=== PATIENT | female | born 1980 | race Caucasian/White ===

== ENCOUNTER 2022-02-11 21:39 | Inpatient (IN) | payer OTHER ==
[2022-02-11 22:31] VITALS: BMI 22.8
[2022-02-11] MEDS ORDERED: cloNIDine HCL 0.1 MG TABLET PO PRN (23:00)
[2022-02-11] MEDS ORDERED: MAG HYDROX/AL HYDROX/SIMETH 30 ML UNIT-DOSE CUP PO PRN (23:00)
[2022-02-11] MEDS ORDERED: MAGNESIUM CITRATE 300 ML BOTTLE PO PRN (23:00)
[2022-02-11] MEDS ORDERED: MAGNESIUM HYDROX 2400MG/30ML ORAL SUSPENSION 30 ML CUP PO PRN (23:00)
[2022-02-11] MEDS ORDERED: ACETAMINOPHEN 325 MG TABLET (FP) PO PRN (23:00)
[2022-02-11] MEDS ORDERED: NALOXONE HCL 0.4 MG/ML VIAL IM PRN (23:00)
[2022-02-11] MEDS ORDERED: BENZOCAINE/MENTHOL (CHLORASEPTIC ) LOZENGE MM PRN (23:00)
[2022-02-11] MEDS ORDERED: IBUPROFEN 400 MG TABLET (FP) PO PRN (23:00)
[2022-02-11] MEDS ORDERED: LOPERAMIDE HCL 2 MG CAPSULE PO PRN (23:00)
[2022-02-11] MEDS ORDERED: BISMUTH SUBSALICYLATE 524 MG/30 ML PO PRN (23:00)
[2022-02-11] MEDS ORDERED: methaDONE HCL 10 MG TABLET (FOR DETOX USE ONLY) PO ONE (23:00)
[2022-02-11] MEDS ORDERED: DICYCLOMINE HCL 10 MG CAPSULE PO PRN (23:00)
[2022-02-12] MEDS ORDERED: methaDONE HCL 10 MG TABLET (FOR DETOX USE ONLY) ONE (09:01)
[2022-02-12 09:24] LABS: HEMOGLOBIN 13.1 GM/dL (10.7-15.3); MCH 27.2 pg (25.7-33.7); MCHC 33.6 g/dl (32.0-36.0); MEAN PLT VOLUME 8.8 fl (7.5-11.1); PLATELET COUNT 430 10^3/uL (134-434); RBC 4.82 M/mm3 (3.60-5.2); RDW 15.2 % (11.6-15.6); WHITE BLOOD COUNT 6.1 K/mm3 (4.0-10.0)
[2022-02-12 09:45] LABS: CALCIUM 9.1 mg/dL (8.5-10.1)
[2022-02-12 09:46] LABS: ALBUMIN 3.5 g/dl (3.4-5.0); BILIRUBIN,TOTAL 0.3 mg/dL (0.2-1); BLOOD UREA NITROGEN 12.1 mg/dL (7-18)
[2022-02-12] MEDS: ARIPiprazole 10 MG TABLET PO SCH (10:41)
[2022-02-12] MEDS: PRENATAL VITAMINS W/ FOLIC ACID TABLET (FP) PO SCH (10:41)
[2022-02-12] MEDS: NICOTINE 14 MG/24 HOURS TOPICAL PATCH TD SCH (10:41)
[2022-02-12] MEDS ORDERED: POTASSIUM CHLORIDE TABS 20 MEQ TABLET.ER (FP) PO ONE (12:16)
[2022-02-12] MEDS ORDERED: P-EPHED 60MG/TRIPROLIDI 2.5MG TABLET PO PRN (15:00)
[2022-02-12] MEDS: NICOTINE POLACRILEX 2 MG GUM BUC PRN ×2 (15:39→20:04)
[2022-02-12] MEDS: THIAMINE HCL 100 MG TABLET (FP) PO SCH (22:03)
[2022-02-12] MEDS: METHOCARBAMOL 500 MG TABLET PO PRN (22:03)
[2022-02-12] MEDS: MELATONIN 5 MG TABLETS PO SCH (22:03)
[2022-02-13] MEDS ORDERED: methaDONE HCL 10 MG TABLET (FOR DETOX USE ONLY) PO ONE (10:00)
[2022-02-13] MEDS: PRENATAL VITAMINS W/ FOLIC ACID TABLET (FP) PO SCH (10:31)
[2022-02-13] MEDS: NICOTINE 14 MG/24 HOURS TOPICAL PATCH TD SCH (10:31)
[2022-02-13] MEDS: ARIPiprazole 10 MG TABLET PO SCH (10:33)
[2022-02-13] MEDS: NICOTINE POLACRILEX 2 MG GUM BUC PRN (10:56)
[2022-02-13] MEDS: NICOTINE 10 MG CARTRIDGE (INHALER) IH PRN ×2 (12:06→21:06)
[2022-02-13] MEDS: METHOCARBAMOL 500 MG TABLET PO PRN ×2 (12:06→21:06)
[2022-02-13] MEDS: IBUPROFEN 600 MG TABLET (FP) PO PRN (17:34)
[2022-02-13] MEDS: THIAMINE HCL 100 MG TABLET (FP) PO SCH (21:06)
[2022-02-13] MEDS: MELATONIN 5 MG TABLETS PO SCH (21:06)
[2022-02-14] MEDS ORDERED: methaDONE HCL 10 MG TABLET (FOR DETOX USE ONLY) ONE (10:03)
[2022-02-14] MEDS: PRENATAL VITAMINS W/ FOLIC ACID TABLET (FP) PO SCH (10:06)
[2022-02-14] MEDS: METHOCARBAMOL 500 MG TABLET PO PRN ×2 (10:06→20:33)
[2022-02-14] MEDS: ARIPiprazole 10 MG TABLET PO SCH (10:07)
[2022-02-14] MEDS: ACETAMINOPHEN 325 MG TABLET (FP) PO PRN (17:10)
[2022-02-14] MEDS: NICOTINE 10 MG CARTRIDGE (INHALER) IH PRN (20:34)
[2022-02-14] MEDS: MELATONIN 5 MG TABLETS PO SCH (22:07)
[2022-02-14] MEDS: THIAMINE HCL 100 MG TABLET (FP) PO SCH (22:07)
[2022-02-15] MEDS: PRENATAL VITAMINS W/ FOLIC ACID TABLET (FP) PO SCH (09:40)
[2022-02-15] MEDS: ARIPiprazole 10 MG TABLET PO SCH (09:40)
[2022-02-15] MEDS: METHOCARBAMOL 500 MG TABLET PO PRN ×2 (09:41→19:49)
[2022-02-15] MEDS ORDERED: methaDONE HCL 10 MG TABLET (FOR DETOX USE ONLY) PO ONE (10:00)
[2022-02-15] MEDS: NICOTINE 10 MG CARTRIDGE (INHALER) IH PRN (14:13)
[2022-02-15] MEDS: ACETAMINOPHEN 325 MG TABLET (FP) PO PRN (15:29)
[2022-02-15] MEDS ORDERED: ALBUTEROL SO4 HFA INHALER IH PRN (15:31)
[2022-02-15] MEDS: THIAMINE HCL 100 MG TABLET (FP) PO SCH (22:23)
[2022-02-15] MEDS: MELATONIN 5 MG TABLETS PO SCH (22:23)
[2022-02-15] MEDS: IBUPROFEN 600 MG TABLET (FP) PO PRN (22:24)
[2022-02-16 08:47] VITALS: PULSE 66
[2022-02-16] MEDS: PRENATAL VITAMINS W/ FOLIC ACID TABLET (FP) PO SCH (10:10)
[2022-02-16] MEDS: ARIPiprazole 10 MG TABLET PO SCH (10:10)
[2022-02-16] MEDS: METHOCARBAMOL 500 MG TABLET PO PRN (10:11)
[2022-02-16 12:37] VITALS: BP 120/78; RESP 16; TEMP 97.6
== END 2022-02-16 13:45 | disposition other institution (70) | DRG 773 ==
LOC: YASAS 21:39 → Y3N 23:01
PROVIDERS: ADMIT Allergy & Immunology; ATTEND Surgery
PROC: HZ2ZZZZ Detoxification Services for Substance Abuse Treatment (ICD-10-PCS; principal; 2022-02-11)
DX: F11.23 Opioid dependence with withdrawal (principal); F14.20 Cocaine dependence, uncomplicated; F17.210 Nicotine dependence, cigarettes, uncomplicated; F41.9 Anxiety disorder, unspecified; F19.24 Other psychoactive substance dependence with psychoactive substance-induced mood disorder; F31.9 Bipolar disorder, unspecified; J45.909 Unspecified asthma, uncomplicated; K21.9 Gastro-esophageal reflux disease without esophagitis; R79.89 Other specified abnormal findings of blood chemistry; E87.6 Hypokalemia; M54.59 Other low back pain; G89.29 Other chronic pain; Z91.14 Patient's other noncompliance with medication regimen; Z87.42 Personal history of other diseases of the female genital tract; Z56.0 Unemployment, unspecified
CPT/HCPCS: 36415; 80053; 81025; 83036; 84132; 85027; 86780; 93005; 93010; C9803-CS; U0003; U0005

== ENCOUNTER 2022-02-16 13:58 | Inpatient (IN) | payer OTHER ==
[2022-02-16] MEDS ORDERED: MAG HYDROX/AL HYDROX/SIMETH 30 ML UNIT-DOSE CUP PO PRN (15:24)
[2022-02-16] MEDS ORDERED: LOPERAMIDE HCL 2 MG CAPSULE PO PRN (15:24)
[2022-02-16] MEDS ORDERED: MAGNESIUM CITRATE 300 ML BOTTLE PO PRN (15:24)
[2022-02-16] MEDS ORDERED: NICOTINE 10 MG CARTRIDGE (INHALER) IH PRN (15:24)
[2022-02-16] MEDS ORDERED: IBUPROFEN 400 MG TABLET (FP) PO PRN (15:24)
[2022-02-16] MEDS ORDERED: MAGNESIUM HYDROX 2400MG/30ML ORAL SUSPENSION 30 ML CUP PO PRN (15:24)
[2022-02-16] MEDS ORDERED: guaiFENesin 200 MG/10 ML 10 ML UNIT-DOSE CUPS PO PRN (15:24)
[2022-02-16] MEDS ORDERED: P-EPHED 60MG/TRIPROLIDI 2.5MG TABLET PO PRN (15:24)
[2022-02-16] MEDS ORDERED: BENZOCAINE/MENTHOL (CHLORASEPTIC ) LOZENGE MM PRN (15:24)
[2022-02-16 15:32] VITALS: RESP 18
[2022-02-16] MEDS: ACETAMINOPHEN 325 MG TABLET (FP) PO PRN (18:26)
[2022-02-16] MEDS: hydrOXYzine PAMOATE 25 MG CAPSULE (FP) PO PRN (21:35)
[2022-02-16] MEDS ORDERED: MELATONIN 5 MG TABLETS PO SCH (22:00)
[2022-02-16] MEDS ORDERED: THIAMINE HCL 100 MG TABLET (FP) PO SCH (22:00)
[2022-02-17 08:18] VITALS: BP 107/57; PULSE 81; TEMP 98.6
[2022-02-17] MEDS: ACETAMINOPHEN 325 MG TABLET (FP) PO PRN (09:36)
[2022-02-17] MEDS: hydrOXYzine PAMOATE 25 MG CAPSULE (FP) PO PRN (09:36)
[2022-02-17] MEDS ORDERED: NICOTINE 7 MG/24 HOURS TOPICAL PATCH TD SCH (10:00)
[2022-02-17] MEDS ORDERED: PRENATAL VITAMINS W/ FOLIC ACID TABLET (FP) PO SCH (10:00)
[2022-02-17] MEDS ORDERED: METHOCARBAMOL 500 MG TABLET PO PRN (10:38)
== END 2022-02-17 14:15 | disposition left against medical advice (07) | DRG 770 ==
LOC: YASAS 13:58 → Y5N 13:59
PROVIDERS: ADMIT Allergy & Immunology; ATTEND Psychiatry & Neurology Pain Medicine
PROC: HZ42ZZZ Group Counseling for Substance Abuse Treatment, Cognitive-Behavioral (ICD-10-PCS; principal; 2022-02-16)
DX: F11.20 Opioid dependence, uncomplicated (principal); F17.210 Nicotine dependence, cigarettes, uncomplicated

== ENCOUNTER 2022-04-14 23:34 | Inpatient (IN) | payer OTHER ==
[2022-04-15 00:06] VITALS: BMI 22.9
[2022-04-15] MEDS ORDERED: NALOXONE HCL (KLOXXADO) 8 MG SPRAY NS PRN (00:51)
[2022-04-15] MEDS ORDERED: NICOTINE 10 MG CARTRIDGE (INHALER) IH PRN (00:51)
[2022-04-15] MEDS ORDERED: DICYCLOMINE HCL 10 MG CAPSULE PO PRN (00:51)
[2022-04-15] MEDS ORDERED: IBUPROFEN 400 MG TABLET (FP) PO PRN (00:51)
[2022-04-15] MEDS ORDERED: IBUPROFEN 600 MG TABLET (FP) PO PRN (00:51)
[2022-04-15] MEDS ORDERED: MAGNESIUM CITRATE 300 ML BOTTLE PO PRN (00:51)
[2022-04-15] MEDS ORDERED: MAGNESIUM HYDROX 2400MG/30ML ORAL SUSPENSION 30 ML CUP PO PRN (00:51)
[2022-04-15] MEDS ORDERED: LOPERAMIDE HCL 2 MG CAPSULE PO PRN (00:51)
[2022-04-15] MEDS ORDERED: ACETAMINOPHEN 325 MG TABLET (FP) PO PRN ×2 (00:51)
[2022-04-15] MEDS ORDERED: BISMUTH SUBSALICYLATE 524 MG/30 ML PO PRN (00:51)
[2022-04-15] MEDS ORDERED: ONDANSETRON *ODT* 4 MG TABLET SL PRN (00:51)
[2022-04-15] MEDS ORDERED: METHOCARBAMOL 500 MG TABLET PO PRN (00:51)
[2022-04-15] MEDS ORDERED: MAG HYDROX/AL HYDROX/SIMETH 30 ML UNIT-DOSE CUP PO PRN (00:51)
[2022-04-15] MEDS ORDERED: BENZOCAINE/MENTHOL (CHLORASEPTIC ) LOZENGE MM PRN (00:51)
[2022-04-15] MEDS ORDERED: hydrOXYzine PAMOATE 25 MG CAPSULE (FP) PO SCH (06:00)
[2022-04-15] MEDS ORDERED: ALBUTEROL SO4 HFA INHALER IH PRN ×2 (07:52→09:59)
[2022-04-15] MEDS ORDERED: hydrOXYzine PAMOATE 25 MG CAPSULE (FP) PO PRN (09:59)
[2022-04-15] MEDS: PANTOPRAZOLE 40 MG TABLET PO SCH (10:25)
[2022-04-15] MEDS: PRENATAL VITAMINS W/ FOLIC ACID TABLET (FP) PO SCH (10:25)
[2022-04-15] MEDS: NICOTINE 14 MG/24 HOURS TOPICAL PATCH TD SCH (10:26)
[2022-04-15] MEDS ORDERED: PATIENT'S OWN MEDICATION (NON-FORMULARY) (Omeprazole Magnesium [Prilosec] 10 MG Suspdr.Pkt PO SCH (10:45)
[2022-04-15 12:25] LABS: HEMOGLOBIN 12.3 GM/dL (10.7-15.3); MCH 27.9 pg (25.7-33.7); MCHC 33.1 g/dl (32.0-36.0); MEAN CELL VOLUME 84.2 fl (80-96); PLATELET COUNT 365 10^3/uL (134-434); RDW 14.9 % (11.6-15.6); WHITE BLOOD COUNT 3.5 K/mm3 (4.0-10.0)
[2022-04-15] MEDS: CEPHALEXIN MONOHYDRATE 500 MG CAPSULE (UD) PO SCH ×3 (13:23→22:14)
[2022-04-15 13:25] LABS: ALBUMIN 3.3 g/dl (3.4-5.0); BLOOD UREA NITROGEN 7.4 mg/dL (7-18); CALCIUM 9.2 mg/dL (8.5-10.1)
[2022-04-15 13:27] LABS: CREATININE 0.8 mg/dL (0.55-1.3)
[2022-04-15 13:28] LABS: BILIRUBIN,TOTAL 0.7 mg/dL (0.2-1); TOT PROT 6.2 g/dl (6.4-8.2)
[2022-04-15] MEDS ORDERED: P-EPHED 60MG/TRIPROLIDI 2.5MG TABLET PO PRN (18:28)
[2022-04-15] MEDS ORDERED: MELATONIN 5 MG TABLETS PO SCH (22:00)
[2022-04-15] MEDS ORDERED: THIAMINE HCL 100 MG TABLET (FP) PO SCH (22:00)
[2022-04-16 09:09] VITALS: RESP 18
[2022-04-16] MEDS: NICOTINE 14 MG/24 HOURS TOPICAL PATCH TD SCH (10:50)
[2022-04-16] MEDS: PANTOPRAZOLE 40 MG TABLET PO SCH (10:51)
[2022-04-16] MEDS: PRENATAL VITAMINS W/ FOLIC ACID TABLET (FP) PO SCH (10:51)
[2022-04-16] MEDS: CEPHALEXIN MONOHYDRATE 500 MG CAPSULE (UD) PO SCH ×3 (10:51→17:12)
[2022-04-16 12:20] LABS: HIV INTERPRETATION NEGATIVE (NEGATIVE)
[2022-04-16 17:06] VITALS: BP 116/64; PULSE 69; TEMP 96.9
== END 2022-04-16 17:15 | disposition home or self-care (01) | DRG 773 ==
LOC: YASAS 23:34 → Y6N 04-15 01:17
PROVIDERS: ADMIT Allergy & Immunology; ATTEND Surgery
PROC: HZ2ZZZZ Detoxification Services for Substance Abuse Treatment (ICD-10-PCS; principal; 2022-04-15)
DX: F11.23 Opioid dependence with withdrawal (principal); F14.20 Cocaine dependence, uncomplicated; F17.210 Nicotine dependence, cigarettes, uncomplicated; F31.9 Bipolar disorder, unspecified; F41.8 Other specified anxiety disorders; F19.282 Other psychoactive substance dependence with psychoactive substance-induced sleep disorder; F19.24 Other psychoactive substance dependence with psychoactive substance-induced mood disorder; J45.909 Unspecified asthma, uncomplicated; M54.50 Low back pain, unspecified; G89.29 Other chronic pain; N39.0 Urinary tract infection, site not specified; Z87.42 Personal history of other diseases of the female genital tract
CPT/HCPCS: 36415; 80053; 81025; 85027; 86780; 87389; 93005; 93010; C9803-CS; U0003; U0005

== ENCOUNTER 2022-09-11 21:57 | Inpatient (IN) | payer OTHER ==
[2022-09-11 22:31] VITALS: BMI 22.9
[2022-09-12] MEDS ORDERED: NALOXONE HCL (KLOXXADO) 8 MG SPRAY NS PRN (00:12)
[2022-09-12] MEDS ORDERED: IBUPROFEN 600 MG TABLET (FP) PO PRN (00:12)
[2022-09-12] MEDS ORDERED: ONDANSETRON *ODT* 4 MG TABLET SL PRN (00:12)
[2022-09-12] MEDS ORDERED: MAG HYDROX/AL HYDROX/SIMETH 30 ML UNIT-DOSE CUP PO PRN (00:12)
[2022-09-12] MEDS ORDERED: IBUPROFEN 400 MG TABLET (FP) PO PRN (00:12)
[2022-09-12] MEDS ORDERED: MAGNESIUM HYDROX 2400MG/30ML ORAL SUSPENSION 30 ML CUP PO PRN (00:12)
[2022-09-12] MEDS ORDERED: NICOTINE 10 MG CARTRIDGE (INHALER) IH PRN (00:12)
[2022-09-12] MEDS ORDERED: BISMUTH SUBSALICYLATE 524 MG/30 ML PO PRN (00:12)
[2022-09-12] MEDS ORDERED: POLYETHYLENE GLYCOL (HEALTHYLAX) 3350 17 GM PACKET PO PRN (00:12)
[2022-09-12] MEDS ORDERED: ACETAMINOPHEN 325 MG TABLET (FP) PO PRN ×2 (00:12)
[2022-09-12] MEDS ORDERED: DICYCLOMINE HCL 10 MG CAPSULE PO PRN (00:12)
[2022-09-12] MEDS ORDERED: LOPERAMIDE HCL 2 MG CAPSULE PO PRN (00:12)
[2022-09-12] MEDS ORDERED: BENZOCAINE/MENTHOL (CHLORASEPTIC ) LOZENGE MM PRN (00:12)
[2022-09-12] MEDS ORDERED: cloNIDine HCL 0.1 MG TABLET PO PRN (00:17)
[2022-09-12] MEDS ORDERED: methaDONE HCL 10 MG TABLET (FOR DETOX USE ONLY) PO ONE (00:17)
[2022-09-12] MEDS ORDERED: methaDONE HCL 10 MG TABLET (FOR DETOX USE ONLY) ONE (00:52)
[2022-09-12] MEDS: PRENATAL VITAMINS W/ FOLIC ACID TABLET (FP) PO SCH (10:17)
[2022-09-12] MEDS: NICOTINE 14 MG/24 HOURS TOPICAL PATCH TD SCH (10:18)
[2022-09-12] MEDS ORDERED: ALBUTEROL SO4 HFA INHALER IH PRN (11:41)
[2022-09-12] MEDS: diazePAM 5 MG TABLET PO PRN (15:44)
[2022-09-12] MEDS: METHOCARBAMOL 500 MG TABLET PO PRN ×2 (15:44→21:16)
[2022-09-12] MEDS: MELATONIN 5 MG TABLETS PO SCH (21:16)
[2022-09-12] MEDS: traZODone HCL 50 MG TABLET (FP) PO SCH (21:17)
[2022-09-12] MEDS: THIAMINE HCL 100 MG TABLET (FP) PO SCH (21:17)
[2022-09-13] MEDS: METHOCARBAMOL 500 MG TABLET PO PRN ×2 (08:44→22:15)
[2022-09-13] MEDS: diazePAM 5 MG TABLET PO PRN ×2 (08:45→22:13)
[2022-09-13] MEDS: PRENATAL VITAMINS W/ FOLIC ACID TABLET (FP) PO SCH (10:25)
[2022-09-13] MEDS: PANTOPRAZOLE 40 MG TABLET PO SCH (10:25)
[2022-09-13] MEDS: ARIPiprazole 5 MG TABLET PO SCH (10:25)
[2022-09-13] MEDS: NICOTINE 14 MG/24 HOURS TOPICAL PATCH TD SCH (10:49)
[2022-09-13 12:11] LABS: HEMATOCRIT 36.4 % (32.4-45.2); HEMOGLOBIN 12.6 GM/dL (10.7-15.3); MCH 29.3 pg (25.7-33.7); MCHC 34.7 g/dl (32.0-36.0); MEAN CELL VOLUME 84.7 fl (80-96); MEAN PLT VOLUME 8.9 fl (7.5-11.1); PLATELET COUNT 492 10^3/uL (134-434); RDW 13.5 % (11.6-15.6); WHITE BLOOD COUNT 4.9 K/mm3 (4.0-10.0)
[2022-09-13 12:23] LABS: ALBUMIN 3.2 g/dl (3.4-5.0); BLOOD UREA NITROGEN 9.4 mg/dL (7-18)
[2022-09-13 12:26] LABS: CREATININE 0.9 mg/dL (0.55-1.3)
[2022-09-13 12:27] LABS: BILIRUBIN,TOTAL 0.5 mg/dL (0.2-1); TOT PROT 6.6 g/dl (6.4-8.2)
[2022-09-13] MEDS: MELATONIN 5 MG TABLETS PO SCH (22:11)
[2022-09-13] MEDS: THIAMINE HCL 100 MG TABLET (FP) PO SCH (22:11)
[2022-09-13] MEDS: traZODone HCL 50 MG TABLET (FP) PO SCH (22:11)
[2022-09-14 09:46] VITALS: BP 122/96; PULSE 91; RESP 16; TEMP 98.1
[2022-09-14] MEDS ORDERED: methaDONE HCL 10 MG TABLET (FOR DETOX USE ONLY) PO ONE (10:00)
[2022-09-14] MEDS: METHOCARBAMOL 500 MG TABLET PO PRN (10:02)
[2022-09-14] MEDS: diazePAM 5 MG TABLET PO PRN (10:02)
[2022-09-14] MEDS: ARIPiprazole 5 MG TABLET PO SCH (10:02)
[2022-09-14] MEDS: PRENATAL VITAMINS W/ FOLIC ACID TABLET (FP) PO SCH (10:02)
[2022-09-14] MEDS: PANTOPRAZOLE 40 MG TABLET PO SCH (10:02)
[2022-09-14] MEDS: NICOTINE 14 MG/24 HOURS TOPICAL PATCH TD SCH (10:03)
[2022-09-16] MEDS ORDERED: methaDONE HCL 10 MG TABLET (FOR DETOX USE ONLY) PO ONE (10:00)
== END 2022-09-14 12:14 | disposition left against medical advice (07) | DRG 770 ==
LOC: YASAS 21:57 → Y3N 09-12 01:28
PROVIDERS: ADMIT Allergy & Immunology; ATTEND Surgery
PROC: HZ2ZZZZ Detoxification Services for Substance Abuse Treatment (ICD-10-PCS; principal; 2022-09-12)
DX: F11.23 Opioid dependence with withdrawal (principal); F10.230 Alcohol dependence with withdrawal, uncomplicated; F14.20 Cocaine dependence, uncomplicated; F17.210 Nicotine dependence, cigarettes, uncomplicated; F19.24 Other psychoactive substance dependence with psychoactive substance-induced mood disorder; F31.9 Bipolar disorder, unspecified; J45.20 Mild intermittent asthma, uncomplicated; K21.9 Gastro-esophageal reflux disease without esophagitis; M54.50 Low back pain, unspecified; G89.29 Other chronic pain; Z91.14 Patient's other noncompliance with medication regimen
CPT/HCPCS: 36415; 80053; 81025; 85027; 86780; 87811

== ENCOUNTER 2023-12-23 12:00 | Inpatient (IN) | payer OTHER ==
[2023-12-23 13:30] VITALS: BMI 20.9
[2023-12-23] MEDS ORDERED: NALOXONE HCL 0.4 MG/ML VIAL IM PRN (17:10)
[2023-12-23] MEDS ORDERED: DICYCLOMINE HCL 10 MG CAPSULE PO PRN (17:10)
[2023-12-23] MEDS ORDERED: BENZONATATE 200 MG CAPSULE PO PRN (17:10)
[2023-12-23] MEDS ORDERED: NALOXONE (NARCAN) HCL 4 MG/0.1 ML SPRAY NS PRN (17:10)
[2023-12-23] MEDS ORDERED: BISMUTH SUBSALICYLATE 524 MG/30 ML PO PRN (17:10)
[2023-12-23] MEDS ORDERED: MAGNESIUM HYDROX 2400MG/30ML ORAL SUSPENSION 30 ML CUP PO PRN (17:10)
[2023-12-23] MEDS ORDERED: BENZOCAINE/MENTHOL (CHLORASEPTIC ) LOZENGE MM PRN (17:10)
[2023-12-23] MEDS ORDERED: IBUPROFEN 600 MG TABLET (FP) PO PRN (17:10)
[2023-12-23] MEDS ORDERED: P-EPHED 60MG/TRIPROLIDI 2.5MG TABLET PO PRN (17:10)
[2023-12-23] MEDS ORDERED: IBUPROFEN 400 MG TABLET (FP) PO PRN (17:10)
[2023-12-23] MEDS ORDERED: MAG HYDROX/AL HYDROX/SIMETH 30 ML UNIT-DOSE CUP PO PRN (17:10)
[2023-12-23] MEDS ORDERED: ONDANSETRON *ODT* 4 MG TABLET SL PRN (17:10)
[2023-12-23] MEDS ORDERED: NICOTINE POLACRILEX 2 MG LOZENGE BC PRN (17:10)
[2023-12-23] MEDS ORDERED: POLYETHYLENE GLYCOL (HEALTHYLAX) 3350 17 GM PACKET PO PRN (17:10)
[2023-12-23] MEDS ORDERED: hydrOXYzine PAMOATE 25 MG CAPSULE (FP) PO PRN (17:10)
[2023-12-23] MEDS ORDERED: LOPERAMIDE HCL 2 MG CAPSULE PO PRN (17:10)
[2023-12-23] MEDS ORDERED: CIPROFLOXACIN HCL 0.3% OPHTH 2.5ML BOTTLE OS SCH (17:15)
[2023-12-23] MEDS: GENTAMICIN SULFATE 0.3% OPHTHALMIC (EYE DROPS) 5ML BOTTLE OS SCH (20:40)
[2023-12-23] MEDS: TOBRAMYCIN 0.3% OPHTH OINT 3.5 GM OS SCH (20:41)
[2023-12-23] MEDS ORDERED: MELATONIN 5 MG TABLETS ONE (22:54)
[2023-12-23] MEDS: MELATONIN 5 MG TABLETS PO SCH (22:54)
[2023-12-23] MEDS: THIAMINE 100 MG TABLET PO SCH (22:54)
[2023-12-23] MEDS ORDERED: cloNIDine HCL 0.1 MG TABLET ONE (23:29)
[2023-12-23] MEDS: cloNIDine HCL 0.1 MG TABLET PO ONE (23:29)
[2023-12-24] MEDS: PRENATAL VITAMINS W/ FOLIC ACID TABLET (FP) PO SCH (09:18)
[2023-12-24] MEDS: PANTOPRAZOLE 40 MG TABLET PO SCH (10:59)
[2023-12-24 12:01] LABS: POTASSIUM 3.1 mmol/L (3.5-5.1)
[2023-12-24 12:06] LABS: CALCIUM 8.9 mg/dL (8.5-10.1)
[2023-12-24 12:07] LABS: ALBUMIN 3.4 g/dl (3.4-5.0); BLOOD UREA NITROGEN 7.9 mg/dL (7-18)
[2023-12-24 12:08] LABS: HEMATOCRIT 38.7 % (32.4-45.2); HEMOGLOBIN 13.1 GM/dL (10.7-15.3); MCH 28.2 pg (25.7-33.7); MCHC 33.9 g/dl (32.0-36.0); MEAN CELL VOLUME 83.2 fl (80-96); MEAN PLT VOLUME 8.5 fl (7.5-11.1); PLATELET COUNT 429 10^3/uL (134-434); RBC 4.65 M/mm3 (3.60-5.2); RDW 13.6 % (11.6-15.6); WHITE BLOOD COUNT 5.8 K/mm3 (4.0-10.0)
[2023-12-24 12:10] LABS: CREATININE 0.6 mg/dL (0.55-1.3)
[2023-12-24 12:11] LABS: BILIRUBIN,TOTAL 0.9 mg/dL (0.2-1); TOT PROT 6.2 g/dl (6.4-8.2)
[2023-12-24] MEDS: methaDONE HCL 10 MG TABLET PO ONE (13:20)
[2023-12-24] MEDS: amLODIPine BESYLATE 5 MG TABLET (FP) PO SCH (13:20)
[2023-12-24] MEDS ORDERED: methaDONE HCL 10 MG TABLET PO PRN (14:33)
[2023-12-24] MEDS: POTASSIUM CHLORIDE ORAL LIQUID 20 MEQ/15 ML PO SCH (17:48)
[2023-12-24] MEDS: guaiFENesin 600 MG TABLET.ER (FP) PO PRN (21:38)
[2023-12-24] MEDS: METHOCARBAMOL 500 MG TABLET PO PRN (21:39)
[2023-12-24] MEDS: ALBUTEROL SO4 HFA INHALER IH PRN (21:54)
[2023-12-24] MEDS: cloNIDine HCL 0.1 MG TABLET PO ONE (23:10)
[2023-12-25] MEDS ORDERED: methaDONE 40 MG, methaDONE 10 MG PO ONE (10:00)
[2023-12-25] MEDS: methaDONE 40 MG, methaDONE 10 MG PO ONE (12:03)
[2023-12-25] MEDS: ACETAMINOPHEN 325 MG TABLET (FP) PO PRN (17:53)
[2023-12-25] MEDS: NICOTINE POLACRILEX 2 MG GUM BUC PRN (19:32)
[2023-12-26] MEDS ORDERED: cloNIDine HCL 0.1 MG TABLET PO PRN ×2
[2023-12-26] MEDS: methaDONE 40 MG, methaDONE 20 MG PO ONE (09:05)
[2023-12-27] MEDS: methaDONE 40 MG, methaDONE 30 MG PO ONE (09:37)
[2023-12-27 12:16] VITALS: BP 131/80; PULSE 80; RESP 18; TEMP 98.6
[2023-12-28] MEDS ORDERED: methaDONE HCL 40 MG DISPERSABLE TABLET PO ONE (10:00)
[2023-12-29] MEDS ORDERED: methaDONE 80 MG, methaDONE 10 MG PO ONE (10:00)
== END 2023-12-27 11:35 | disposition home or self-care (01) | DRG 773 ==
LOC: YASAS 12:00 → Y6N 17:40
PROVIDERS: ADMIT Allergy & Immunology; ATTEND Surgery
PROC: HZ2ZZZZ Detoxification Services for Substance Abuse Treatment (ICD-10-PCS; principal; 2023-12-23)
DX: F11.23 Opioid dependence with withdrawal (principal); F14.20 Cocaine dependence, uncomplicated; F17.210 Nicotine dependence, cigarettes, uncomplicated; F19.282 Other psychoactive substance dependence with psychoactive substance-induced sleep disorder; F41.8 Other specified anxiety disorders; U07.1 COVID-19; E87.6 Hypokalemia; H18.822 Corneal disorder due to contact lens, left eye; I10 Essential (primary) hypertension; J45.20 Mild intermittent asthma, uncomplicated; K21.9 Gastro-esophageal reflux disease without esophagitis; M54.50 Low back pain, unspecified; G89.29 Other chronic pain
CPT/HCPCS: 0241U-QW; 36415; 80053; 80305; 81025; 85027; 86780; 93005; 93010

== ENCOUNTER 2024-05-04 13:29 | Inpatient (IN) | payer OTHER ==
[2024-05-04 14:42] VITALS: BMI 21.9
[2024-05-04] MEDS ORDERED: BENZOCAINE/MENTHOL (CHLORASEPTIC ) LOZENGE MM PRN (17:32)
[2024-05-04] MEDS ORDERED: BENZONATATE 200 MG CAPSULE PO PRN (17:32)
[2024-05-04] MEDS ORDERED: LOPERAMIDE HCL 2 MG CAPSULE PO PRN (17:32)
[2024-05-04] MEDS ORDERED: NALOXONE (NARCAN) HCL 4 MG/0.1 ML SPRAY NS PRN (17:32)
[2024-05-04] MEDS ORDERED: DICYCLOMINE HCL 10 MG CAPSULE PO PRN (17:32)
[2024-05-04] MEDS ORDERED: MAG HYDROX/AL HYDROX/SIMETH 30 ML UNIT-DOSE CUP PO PRN (17:32)
[2024-05-04] MEDS ORDERED: MAGNESIUM HYDROX 2400MG/30ML ORAL SUSPENSION 30 ML CUP PO PRN (17:32)
[2024-05-04] MEDS ORDERED: IBUPROFEN 600 MG TABLET (FP) PO PRN (17:32)
[2024-05-04] MEDS ORDERED: IBUPROFEN 400 MG TABLET (FP) PO PRN (17:32)
[2024-05-04] MEDS ORDERED: POLYETHYLENE GLYCOL (HEALTHYLAX) 3350 17 GM PACKET PO PRN (17:32)
[2024-05-04] MEDS ORDERED: guaiFENesin 600 MG TABLET.ER (FP) PO PRN (17:32)
[2024-05-04] MEDS ORDERED: ACETAMINOPHEN 325 MG TABLET (FP) PO PRN (17:32)
[2024-05-04] MEDS ORDERED: ONDANSETRON *ODT* 4 MG TABLET SL PRN (17:32)
[2024-05-04] MEDS ORDERED: BISMUTH SUBSALICYLATE 524 MG/30 ML PO PRN (17:32)
[2024-05-04] MEDS ORDERED: ALBUTEROL SO4 HFA INHALER IH PRN (17:33)
[2024-05-04] MEDS: MELATONIN 5 MG TABLETS PO SCH (22:32)
[2024-05-04] MEDS: METHOCARBAMOL 500 MG TABLET PO PRN (22:32)
[2024-05-04] MEDS: THIAMINE 100 MG TABLET PO SCH (22:32)
[2024-05-05] MEDS: hydrOXYzine PAMOATE 25 MG CAPSULE (FP) PO PRN (09:11)
[2024-05-05] MEDS: PRENATAL VITAMINS W/ FOLIC ACID TABLET (FP) PO SCH (09:58)
[2024-05-05] MEDS: amLODIPine BESYLATE 5 MG TABLET (FP) PO SCH (09:59)
[2024-05-05] MEDS: PANTOPRAZOLE 40 MG TABLET PO SCH (09:59)
[2024-05-05 11:08] LABS: HEMATOCRIT 39.3 % (32.4-45.2); HEMOGLOBIN 12.8 GM/dL (10.7-15.3); MCH 27.7 pg (25.7-33.7); MCHC 32.5 g/dl (32.0-36.0); MEAN CELL VOLUME 85.1 fl (80-96); MEAN PLT VOLUME 8.2 fl (7.5-11.1); PLATELET COUNT 420 10^3/uL (134-434); RBC 4.62 M/mm3 (3.60-5.2); RDW 14.5 % (11.6-15.6)
[2024-05-05 11:17] LABS: CHLORIDE 109 mmol/L (98-107); POTASSIUM 3.5 mmol/L (3.5-5.1); SODIUM 143 mmol/L (136-145)
[2024-05-05 11:25] LABS: SGOT/AST 16 U/L (15-37); SGPT/ALT 22 U/L (13-61)
[2024-05-05 11:26] LABS: ALBUMIN 3.7 g/dl (3.4-5.0); ANION GAP 7 mmol/L (4-13); BILIRUBIN,TOTAL 0.3 mg/dL (0.2-1); BLOOD UREA NITROGEN 11.3 mg/dL (7-18); CALCIUM 9.4 mg/dL (8.5-10.1); CO2 26 mmol/L (21-32); TOT PROT 6.7 g/dl (6.4-8.2)
[2024-05-05 11:27] LABS: ALK PHOS 61 U/L (45-117)
[2024-05-05 11:30] LABS: GLUCOSE,RANDOM 112 mg/dL (74-106)
[2024-05-05] MEDS ORDERED: cloNIDine HCL 0.1 MG TABLET PO PRN (13:40)
[2024-05-05] MEDS: methaDONE HCL 10 MG TABLET (FOR DETOX USE ONLY) PO ONE (14:06)
[2024-05-05] MEDS: cloNIDine HCL 0.1 MG TABLET PO PRN (17:58)
[2024-05-06] MEDS: diazePAM 5 MG TABLET PO PRN (09:57)
[2024-05-06] MEDS: NICOTINE 21 MG/24 HOURS TOPICAL PATCH TD SCH (13:21)
[2024-05-06] MEDS: ARIPiprazole 5 MG TABLET PO SCH (13:47)
[2024-05-06] MEDS: SUVOREXANT 10 MG TABLET PO PRN (22:09)
[2024-05-07 07:02] VITALS: RESP 17; TEMP 97.5
[2024-05-07 09:19] VITALS: BP 143/91; PULSE 97
[2024-05-07] MEDS: methaDONE HCL 10 MG TABLET (FOR DETOX USE ONLY) PO ONE (09:21)
[2024-05-07] MEDS: NALOXONE (NYS OPIOID OVERDOSE PROGRAM) 4 MG/0.1 ML SPRAY NS PRN (10:41)
== END 2024-05-07 10:04 | disposition home or self-care (01) | DRG 773 ==
LOC: YASAS 13:29 → Y6N 17:16
PROVIDERS: ADMIT Surgery; ATTEND Surgery
PROC: HZ2ZZZZ Detoxification Services for Substance Abuse Treatment (ICD-10-PCS; principal; 2024-05-04)
DX: F11.23 Opioid dependence with withdrawal (principal); F14.20 Cocaine dependence, uncomplicated; F17.210 Nicotine dependence, cigarettes, uncomplicated; F25.9 Schizoaffective disorder, unspecified; F19.282 Other psychoactive substance dependence with psychoactive substance-induced sleep disorder; F19.280 Other psychoactive substance dependence with psychoactive substance-induced anxiety disorder; F41.9 Anxiety disorder, unspecified; I10 Essential (primary) hypertension; J45.20 Mild intermittent asthma, uncomplicated; K21.9 Gastro-esophageal reflux disease without esophagitis; M54.50 Low back pain, unspecified; G89.29 Other chronic pain
CPT/HCPCS: 36415; 80053; 80305; 80307; 81025; 85027; 86780; 93005; 93010